=== PATIENT | female | born 1955 | race Caucasian/White ===

== ENCOUNTER 2022-01-16 06:48 | Outpatient (CLI) | payer MEDICARE, MEDICAID | END 2022-01-16 06:49 | disposition critical access hospital (66) | LOC: EMS 06:48 | DX: J02.9 Acute pharyngitis, unspecified (principal); R13.10 Dysphagia, unspecified; R68.89 Other general symptoms and signs; K08.9 Disorder of teeth and supporting structures, unspecified; R03.0 Elevated blood-pressure reading, without diagnosis of hypertension; R45.89 Other symptoms and signs involving emotional state | CPT/HCPCS: A0425; A0429 ==

== ENCOUNTER 2022-01-16 07:06 | Emergency (ER) | payer OTHER, MEDICAID ==
[2022-01-16] MEDS ORDERED: ALBUTEROL NEB 2.5 MG/3 ML INH STA (07:21)
[2022-01-16] MEDS ORDERED: FAMOTIDINE 20 MG TABLET PO STA (07:21)
[2022-01-16] MEDS ORDERED: MAG HYDROX/AL HYDROX/SIMETH 30 ML UDC PO STA (07:22)
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
--- NOTE | 2022-01-16 07:47 | XRAY Report ---
PROCEDURE: Chest 1 View X-Ray INDICATIONS: chest pain TECHNIQUE: One view of the chest was acquired. COMPARISON: None. FINDINGS: Surgical changes and devices: None. Lungs and pleura: No pleural effusions or pneumothorax. Lungs are hyperexpanded and clear. Mediastinum: Mediastinal contours appear normal. Heart size is normal. Aortic atherosclerotic calc ifications. Bones and chest wall: No suspicious bony lesions. Overlying soft tissues appear unremarkable. IMPRESSION: No acute cardiopulmonary abnormality. Hyperexpanded lungs can be seen in the setting of COPD. Reviewed by: Ramón Ellsworth MD on 01/16/2022 7:45 AM [facility] Approved by: Ramón Ellsworth MD on 01/16/2022 7:45 AM [facility] Station ID: [id number]
[2022-01-16 08:16] LABS: BASOPHILS % (AUTO) 1.1 %; EOSINOPHILS # (AUTO) 0.1 10^3/uL (0.0-0.7); EOSINOPHILS % (AUTO) 1.3 %; HCT - HEMATOCRIT 39.3 % (37.0-47.0); HGB - HEMOGLOBIN 12.8 g/dL (12.0-16.0); LYMPHOCYTES # (AUTO) 0.6 10^3/uL (1.5-3.5); LYMPHOCYTES % (AUTO) 15.8 %; MEAN CORPUSCULAR HEMOGLOBIN 29.5 pg (27.0-31.0); MEAN CORPUSCULAR HGB CONC 32.6 g/dL (32.0-36.0); MEAN CORPUSCULAR VOLUME 90.6 fL (81.0-99.0); MEAN PLATELET VOLUME 9.8 fL (7.9-10.8); MONOCYTES # (AUTO) 0.4 10^3/uL (0.0-1.0); MONOCYTES % (AUTO) 11.8 %; NEUTROPHILS # (AUTO) 2.6 10^3/uL (1.5-6.6); NEUTROPHILS % (AUTO) 69.7 %; PLT - PLATELET COUNT 257 10^3/uL (130-450); RED BLOOD COUNT 4.34 10^6/uL (4.20-5.40); RED CELL DISTRIBUTION WIDTH 15.4 % (12.0-15.0); WHITE BLOOD COUNT 3.7 x10^3/uL (4.8-10.8)
[2022-01-16 08:40] LABS: ALBUMIN 3.7 g/dL (3.2-5.5); ALBUMIN/GLOBULIN RATIO 0.9 (1.0-2.2); BILIRUBIN,TOTAL 0.7 mg/dL (0.2-1.0); CALCIUM 9.4 mg/dL (8.5-10.3); CREATININE 0.4 mg/dL (0.4-1.0); POTASSIUM 3.5 mmol/L (3.5-5.0); TOTAL PROTEIN 7.6 g/dL (6.7-8.2)
[2022-01-16] MEDS ORDERED: DOXYCYCLINE 100 MG TABLET PO STA (08:43)
[2022-01-16 09:39] LABS: B. PARAPERTUSSIS- RESP PCR PAN NOT DETECTED; B. PERTUSSIS- RESP PCR PANEL NOT DETECTED; C. PNEUMONIAE- RESP PCR PANEL NOT DETECTED; CORONAVIRUS 229E-RESP PCR NOT DETECTED; CORONAVIRUS HKU1-RESP PCR NOT DETECTED; CORONAVIRUS NL63-RESP PCR NOT DETECTED; CORONAVIRUS OC43-RESP PCR NOT DETECTED; HUMAN METAPNEUMOVIRUS NOT DETECTED; INFLUENZA A- RESP PCR PANEL NOT DETECTED; INFLUENZA B - RESP PCR PANEL NOT DETECTED; M. PNEUMONIAE- RESP PCR PANEL NOT DETECTED; PARAINFLUENZA VIRUS 1 NOT DETECTED; PARAINFLUENZA VIRUS 2 NOT DETECTED; PARAINFLUENZA VIRUS 3 NOT DETECTED; PARAINFLUENZA VIRUS 4 NOT DETECTED; RHINOVIRUS/ENTEROVIRUS NOT DETECTED; RSV- RESP PCR PANEL NOT DETECTED
[2022-01-16 09:45] LABS: SARS-CoV-2 -RESP PCR PANEL DETECTED
[2022-01-16 12:01] VITALS: BP 175/100
== END 2022-01-16 12:53 | disposition home or self-care (01) ==
LOC: ED 07:06
DX: U07.1 COVID-19 (principal); J44.9 Chronic obstructive pulmonary disease, unspecified; R03.0 Elevated blood-pressure reading, without diagnosis of hypertension; F50.9 Eating disorder, unspecified; E46 Unspecified protein-calorie malnutrition; Z59.02 Unsheltered homelessness
CPT/HCPCS: 0202U; 36415; 71045; 80053; 83690; 83735; 84443; 85025; 99284; A9270